=== PATIENT | female | born 1970 | race Caucasian/White ===

== ENCOUNTER 2022-02-15 11:43 | Emergency (ER) | payer MEDICAID ==
[~2022-02-15] VITALS: Ht 167.6 cm; Wt 70.0 kg
[2022-02-15 11:51] VITALS: BP 157/75
[2022-02-15] MEDS ORDERED: KETOROLAC 60MG/2ML VIAL IM ONE (13:30)
[2022-02-15] MEDS ORDERED: IBUP-2028 MT (19:31)
== END 2022-02-15 19:05 | disposition left against medical advice (07) ==
LOC: ER 13:02
DX: R51.9 Headache, unspecified (principal)
CPT/HCPCS: 99281